=== PATIENT | female | born 1965 | race African-American/Black ===

== ENCOUNTER 2021-09-26 07:17 | Outpatient (CLI) | payer OTHER ==
[~2021-09-26] VITALS: Ht 160 cm; Wt 45.2 kg
[~2021-09-26 07:17] MED LIST: CAPSAICIN0.025% TOP; HCTZ 25MG TAB25 MG PO; LIPITOR20 MG PO; LOPRESSOR100 MG PO; NEURONTIN300 MG/CAP PO; NEURONTIN400 MG/CAP PO
--- NOTE | 2021-09-26 07:27 | NUR ---
55 Year old female admitted to [facility] bay [address] via wheelchair. Patient was able to stand on the floor scale and weight was obtained. Patient is unsteady, but denies needing assitance and used the side rails to steady herself. Medications and HX reviewed. Procedure verified and consent signed. The patient verbalized understanding the procedure. First and last name + verified with the patient. Vitals obtained and blood pressure was high: 151/101 and then 163/119. RN to notify meena. Patient states that this is "normal" for her. Patient denied needing assistance changing into a clean gown. Her aunt, Laura is present. The RN placed her walker in front of the patient if needed while changing. Call blakely is next to her at bedside, within reach.
[2021-09-26] MEDS ORDERED: INDERAL 10MG10 MG PO (07:36)
--- NOTE | 2021-09-26 07:40 | NUR ---
Bakari Rendon, SYSTEMS DESIGNER was called about the patient's BP however was not reached.
--- NOTE | 2021-09-26 08:05 | NUR ---
CBC collected and sent with the school laboratory technician. IV started in L hand with Nexiva 20G on first attempt. LR is infusing without difficulty.
[2021-09-26 08:10] LABS: BASO # 0.1 K/mm3 (0.0-0.2); BASO % 1.1 % (0.0-2.0); EOS # 0.1 K/mm3 (0.0-0.7); EOS % 0.9 % (0.0-4.0); GRAN # 2.8 K/mm3 (1.4-6.5); GRAN % 51.9 % (42.2-75.2); HEMOGLOBIN 10.7 g/dl (12.5-16.0); LYMPH # 1.9 K/mm3 (1.2-3.4); LYMPH % 35.4 % (20.0-51.0); MEAN CELL VOLUME 105 fl (80.0-100.0); MEAN CORPUSCULAR HEMOGLOBIN 37 pg (27-31); MEAN CORPUSCULAR HGB CONC 35 g/dl (33.0-37.0); MEAN PLATELET VOLUME 10.2 fl (7.4-10.4); MONO # 0.6 K/mm3 (0.1-0.6); MONO % 10.5 % (1.7-9.3); PLATELET COUNT 221 K/mm3 (130-400); RED BLOOD COUNT 2.88 M/mm3 (4.10-5.30); REDCELL DISTRIBUTION WIDTH-CV 15.3 % (11.5-14.5)
[2021-09-26 08:13] VITALS: BP 151/101; PULSE 103; TEMP 97.5
--- NOTE | 2021-09-26 08:15 | NUR ---
CONTROL TOWER RADIO OPERATOR was called again
[2021-09-26 08:27] LABS: HEMATOCRIT 30.3 % (37.0-47.0)
--- NOTE | 2021-09-26 08:35 | NUR ---
Pascual gonzalez was called in regards to the patients blood pressure. No new orders recieved. STORE CLERK CHECKER stated that they will look into it once she hits PACU for the procudure.
[2021-09-26 09:50] VITALS: BP 114/75; PULSE 103; TEMP 97.8
--- NOTE | 2021-09-26 09:50 | NUR ---
Patient is drowsy but oriented x3. Denies pain. Vitals obtained and are WNL. Her BP has come down since admission. Patient requested buttered toast and Sprite to drink. Report obtained over the phone from JODI Brennan. Call blakely is on her lap. Side rails x1.
[2021-09-26 10:05] VITALS: BP 119/89; PULSE 102
--- NOTE | 2021-09-26 10:05 | NUR ---
Patient has finished her toast and has had a few sips of Sprite. Denies neusea. No vomiting. Patient rolled to her right side to allow RN to look at biopsy sites. No bleeding or swelling noted. Bandages are intact and in-place, clean and dry. Patient requested ice water to drink. She is currently watching TV in bed, talking to her aunt.
[2021-09-26 10:20] VITALS: BP 103/70; PULSE 105
--- NOTE | 2021-09-26 10:20 | NUR ---
Vitals obtained while laying down (103/70) and sitting (103/74). IV was discontinued. Catheter tip intact. Pressure dressing applied. No redness or swelling noted. Patient denied needing assistance changing into her personal clothes. Walker was place in front of her if needed. Call blakely is next to her on the bed.
--- NOTE | 2021-09-26 10:35 | NUR ---
DC instructions and educational material was reviewed with the patient and her Aunt at this time. Both verbalized understanding and the patient signed the related paperwork. The patient denied having any questions or concerns. The patient was provided four packs of 2x2's and two large bandages, along with a bed pad per her request. The [facility] JODI Wang. The patient has her personal belongings and DC packet in the white patient belongings bag, which is on her lap and was put in the backseat of her Aunt's car including a blue [employer] bag. The patient was assisted into the front seat, where she put her seatbelt on. The patient was transferred into the car of her Aunt Laura at this time, who is present to drive.
== END 2021-09-26 10:50 | disposition home or self-care (01) ==
LOC: SDCO 07:17
PROVIDERS: Pathology Anatomic Pathology & Clinical Pathology
DX: D47.2 Monoclonal gammopathy (principal)
CPT/HCPCS: J2250; J2704; J7120